=== PATIENT | female | born 1955 | race African-American/Black ===

== ENCOUNTER 2021-10-11 22:10 | Emergency (ER) | payer SELFPAY ==
[~2021-10-11] VITALS: Ht 172.7 cm; Wt 70.5 kg
[2021-10-11] MEDS ORDERED: ATEN-72 PO (22:18)
[2021-10-11] MEDS ORDERED: KETOROLAC TROMETHAMINE 60 MG/2 ML VIAL IM ONE (23:00)
[2021-10-12 00:18] VITALS: BP 150/63
[2021-10-12] MEDS ORDERED: IBUP-1554 PO (00:34)
[2021-10-12] MEDS ORDERED: ACET-2080 PO (00:34)
== END 2021-10-12 00:40 | disposition home or self-care (01) ==
LOC: EMS 22:11
DX: S43.402A Unspecified sprain of left shoulder joint, initial encounter (principal); I10 Essential (primary) hypertension; X50.9XXA Other and unspecified overexertion or strenuous movements or postures, initial encounter; Y93.89 Activity, other specified; Y92.89 Other specified places as the place of occurrence of the external cause; Y99.8 Other external cause status
CPT/HCPCS: 73030; 96372; 99283; J1885; 29240